=== PATIENT | male | born 1960 | race Caucasian/White ===

== ENCOUNTER 2023-01-02 06:31 | Day surgery (SDC) | payer BC ==
[~2023-01-02] VITALS: Ht 188 cm; Wt 126.1 kg
[~2023-01-02 06:31] MED LIST: ESOM20 PO; LEVSOD125 PO; PRED20 PO
[2023-01-02 07:13] VITALS: BP 139/87
[2023-01-02 07:14] VITALS: BP 140/91
--- NOTE | 2023-01-02 07:26 | NUR ---
Ambulatory in Day Surgery WITH STEADY GAIT. History, Chart, Medications and Allergies reviewed before start of procedure. Lungs clear T/O to Auscultation. Patient confirms NPO status and agrees with scheduled surgery. Pre-Op teaching done. Pt verbalizes understanding. Patient States Post-Procedure ride home has been arranged WITH FRIEND JUDY.
--- NOTE | 2023-01-02 07:49 | NUR ---
01/02/23 [address] RIVERA, SEE ANESTHESIA RECORDS.
[2023-01-02 09:05] VITALS: BP 161/99
[2023-01-02 09:23] VITALS: BP 149/83
--- NOTE | 2023-01-02 09:32 | NUR ---
Patient up to Ambulate independently. Gait steady. Discharge instructions reviewed with patient. Patient verbalizes understanding. Copy given to patient to take home. Patient States Post-Procedure ride home has been arranged. Discharged via wheelchair to private car for ride home. PT TOLERATING PO FLUIDS, DENIES NAUSEA OR PAIN
== END 2023-01-02 22:50 | disposition home or self-care (01) ==
LOC: ORSCMMR 06:31 → ORD 08:00 → ORSCMMR 08:00
PROVIDERS: Student in an Organized Health Care Education/Training Program
PROC: 0DBK8ZX Excision of Ascending Colon, Via Natural or Artificial Opening Endoscopic, Diagnostic (ICD-10-PCS; principal; 2023-01-02 08:00)
PROC: 0DBN8ZX Excision of Sigmoid Colon, Via Natural or Artificial Opening Endoscopic, Diagnostic (ICD-10-PCS; principal; 2023-01-02 08:00)
PROC: 0DBM8ZX Excision of Descending Colon, Via Natural or Artificial Opening Endoscopic, Diagnostic (ICD-10-PCS; principal; 2023-01-02 08:00)
PROC: 0DBH8ZX Excision of Cecum, Via Natural or Artificial Opening Endoscopic, Diagnostic (ICD-10-PCS; principal; 2023-01-02 08:00)
PROC: 0DB58ZX Excision of Esophagus, Via Natural or Artificial Opening Endoscopic, Diagnostic (ICD-10-PCS; principal; 2023-01-02 08:00)
DX: Z12.11 Encounter for screening for malignant neoplasm of colon (principal); Z86.010 Personal history of colon polyps; K21.9 Gastro-esophageal reflux disease without esophagitis; K22.70 Barrett's esophagus without dysplasia; D12.5 Benign neoplasm of sigmoid colon; D12.2 Benign neoplasm of ascending colon; D12.4 Benign neoplasm of descending colon; K63.5 Polyp of colon; K22.2 Esophageal obstruction; K44.9 Diaphragmatic hernia without obstruction or gangrene; K57.30 Diverticulosis of large intestine without perforation or abscess without bleeding; I48.91 Unspecified atrial fibrillation; G47.33 Obstructive sleep apnea (adult) (pediatric); Z79.899 Other long term (current) drug therapy
CPT/HCPCS: 88305; J2704; J7120

== ENCOUNTER 2024-08-19 13:23 | Emergency (ER) | payer BC ==
[~2024-08-19] VITALS: Ht 188 cm; Wt 133.8 kg
[2024-08-19 14:14] LABS: BASOPHILS ABSOLUTE AUTO 0.06 K/mm3 (0.00-0.23); BASOPHILS PERCENT AUTO 1 % (0-2); EOSINOPHILS ABSOLUTE AUTO 0.14 K/mm3 (0.00-0.68); EOSINOPHILS PERCENT AUTO 2 % (0-6); Hematocrit 45.5 % (37.0-53.0); Hemoglobin 15.5 g/dL (13.5-17.5); IMMATURE GRAN ABSOLUTE AUTO 0.03 K/mm3 (0.00-0.10); IMMATURE GRAN PERCENT AUTO 0 % (0-1); LYMPHOCYTES ABSOLUTE AUTO 1.65 K/mm3 (0.84-5.20); LYMPHOCYTES PERCENT AUTO 23 % (21-46); MONOCYTES ABSOLUTE AUTO 0.59 K/mm3 (0.16-1.47); MONOCYTES PERCENT AUTO 8 % (4-13); Mean Corpuscular HGB 29.9 pg (26.0-34.0); Mean Corpuscular HGB Conc 34.1 g/dL (31.5-36.5); Mean Corpuscular Volume 88 fL (80-100); Mean Platelet Volume 9.2 fL (9.1-12.4); NEUTROPHILS ABSOLUTE AUTO 4.81 K/mm3 (1.96-9.15); NEUTROPHILS PERCENT AUTO 66 % (41-73); Platelet Count 214 K/mm3 (150-400); RDW Coefficient Variation 12.4 % (11.7-14.2); RDW Standard Deviation 40.3 fL (35.1-46.3); Red Blood Cell Count 5.19 M/mm3 (4.30-5.90); White Blood Cell Count 7.28 K/mm3 (4.00-11.30)
[2024-08-19 14:34] LABS: Albumin, Blood 3.6 g/dL (3.4-5.0); Albumin/Globulin Ratio 0.9 (0.8-1.8); Bilirubin, Total 0.4 mg/dL (0.1-1.0); Bun/Creatinine Ratio 13.6 (12.0-20.0); Calcium, Blood 9.5 mg/dL (8.5-10.1); Creatinine, Blood 1.03 mg/dL (0.60-1.20); Globulin, Blood 3.8 g/dL (2.2-4.0); Potassium, Blood 4.1 mmol/L (3.5-5.5); Total Protein, Blood 7.4 g/dL (6.4-8.2)
[2024-08-19 15:53] VITALS: BP 144/101
== END 2024-08-19 16:39 | disposition home or self-care (01) ==
LOC: ER 13:23
PROVIDERS: Student in an Organized Health Care Education/Training Program
DX: I48.91 Unspecified atrial fibrillation (principal); Z79.01 Long term (current) use of anticoagulants
CPT/HCPCS: 71046; 80053; 84484; 85025; 93005; 93010; 99285-25

== ENCOUNTER 2024-09-16 05:56 | Day surgery (SDC) | payer BC ==
[~2024-09-16] VITALS: Ht 188 cm; Wt 134.0 kg
[2024-09-16] VITALS (21 sets, daily range): BP systolic 127–160; BP diastolic 83–114
[2024-09-16] MEDS ORDERED: ELIQUIS5 M2 PO (06:06)
[2024-09-16] MEDS ORDERED: AMIODARONE HCL400 M2 PO (06:08)
[2024-09-16] MEDS ORDERED: NS 1,000 ML IV ONE (06:16)
[2024-09-16] MEDS ORDERED: propofoL 20 ML IV ONE ×2 (06:37)
[2024-09-16] MEDS ORDERED: Lidocaine HCl 2% 20 ML MDV INJ ONE (06:38)
[2024-09-16] MEDS ORDERED: Benzocaine Oral Spray 0.5ML UD ONE (06:48)
--- NOTE | 2024-09-16 08:13 | NUR ---
PATIENT ADMITTED THIS AM FOR RADHA AND CARDIOVERSION FOR AFIB/FLUTTER WITH ANESTHESIA. PT NPO. PT TAKING ELIQUIS REGULARLY ORDERED, LAST DOSE 09/15 PM. PT HAS NOT STARTED TAKING AMIO ORDERED D/T FEARS OF SIDE EFFECTS. DR GARVEY NOTIFIED. ANESTHESIA IN ROOM TO SEE PT AT 0645. PRE EKG COMPLETED AND SHOWN TO DR GARVEY. TIME OUT AT 0710. RADHA START AT 0717, RADHA END AT 07. 200J SYNCHRONIZED CARDIOVERSION AT 0724, PT COVERTED FROM AFIB TO SINUS RHYTHM RATE 60'S, VSS. ANETHESIA END AT 0736. PT WAKES UP WELL TO VOICE, DENIES COMPLAINTS, VSS. 0805 POST EKG TAKEN AND SHOWN TO DR GARVEY. DR GARVEY AT BEDSIDE TO SEE PT AT 0805. PT AGREES TO START AMIODARIONE.
--- NOTE | 2024-09-16 08:58 | NUR ---
PT AWAKE AND ALERT. DENIES COMPLAINTS. VSS. VERBAL AND WRITTEN DISCHARGE INSTRUCTIONS GIVEN TO PATIENT. PT EDUCATED ON THE IMPORTANCE OF CONTINUING ELIQUIS. PATIENT DISCHARGED IN STABLE CONDITION AT 0855 VIA WHEELCHAIR, PT DELIVERED TO PATIENTS FRIEND WHOM IS DRIVING HIM HOME.
== END 2024-09-16 10:15 | disposition home or self-care (01) ==
LOC: MHTC 05:56
DX: I48.0 Paroxysmal atrial fibrillation (principal); I48.92 Unspecified atrial flutter; I10 Essential (primary) hypertension; G47.33 Obstructive sleep apnea (adult) (pediatric); R94.31 Abnormal electrocardiogram [ECG] [EKG]; K21.9 Gastro-esophageal reflux disease without esophagitis; E03.9 Hypothyroidism, unspecified
CPT/HCPCS: 93005; 93010; 93312; 93325; A9270; J2704; J7030

== ENCOUNTER 2025-06-01 19:24 | Emergency (ER) | payer OTHER ==
[~2025-06-01] VITALS: Ht 188 cm; Wt 106.6 kg
[~2025-06-01 19:24] MED LIST changes: +AMIODARONE HCL400 M2 PO; +ELIQUIS5 M2 PO
[2025-06-01] MEDS ORDERED: Fluorescein Sod 1MG Opth Strips BOTHEYES ONE (19:45)
[2025-06-01] MEDS ORDERED: Tetracaine HCl/Pf 0.5% Opth Soln 4 ml BOTHEYES ONE (19:50)
[2025-06-01] MEDS ORDERED: Ketorolac 0.5% Opth Soln BTL LEFTEYE ONE (20:55)
[2025-06-01] MEDS ORDERED: Ciprofloxacin2.5 ML LEFTEYE (20:59)
[2025-06-01] MEDS ORDERED: KETOROLAC TROMET5 M1 LEFTEYE (20:59)
[2025-06-01 21:31] VITALS: BP 147/77
== END 2025-06-01 21:33 | disposition home or self-care (01) ==
LOC: ER 19:24
DX: S05.02XA Injury of conjunctiva and corneal abrasion without foreign body, left eye, initial encounter (principal); X58.XXXA Exposure to other specified factors, initial encounter; Z79.899 Other long term (current) drug therapy
CPT/HCPCS: 99283; A9270